=== PATIENT | female | born 1975 | race Hispanic/Latino ===

== ENCOUNTER 2019-11-12 04:32 | Inpatient (IN) | payer SELFPAY ==
[~2019-11-12] VITALS: Ht 147.3 cm; Wt 75.2 kg
[2019-11-12] MEDS ORDERED: ACETAMINOPHEN-CODEINE 300/30MG TAB ONE (05:23)
[2019-11-12] MEDS ORDERED: SODIUM CHLORIDE 0.9% 1000ML 1,000 ML IV ONE ×2 (05:23→14:12)
[2019-11-12 05:27] LABS: BILIRUBIN,URINE Negative (NEGATIVE); COLOR,URINE Yellow (YELLOW); GLUCOSE, URINE (UA) TRACE mg/dL (NEGATIVE); KETONES,URINE Negative (NEGATIVE); LEUKOCYTE ESTERASE ,URINE Large (NEGATIVE); NITRATE,URINE Negative (NEGATIVE); OCCULT BLOOD,URINE Moderate (NEGATIVE); PROTEIN,URINE Trace mg/dL (NEGATIVE)
[2019-11-12 05:30] LABS: APPEARANCE,URINE SLIGHTLY CLOUDY (CLEAR)
[2019-11-12 05:31] LABS: HCG,QUAL RESULT NEGATIVE (NEGATIVE)
[2019-11-12 05:45] LABS: BASOPHILS % (AUTO) 0.3 % (0.0-5.0); EOSINOPHILS % (AUTO) 1.8 % (0.0-8.0); HEMATOCRIT 41.9 % (36-48); LYMPHOCYTES % (AUTO) 20.3 % (21.0-51.0); MEAN CORPUSCULAR HEMOGLOBIN 27.8 pg (27.0-33.0); MEAN CORPUSCULAR HGB CONC 33.9 g/dL (32.0-36.0); MEAN CORPUSCULAR VOLUME 82.2 fL (79-99); MONOCYTES % (AUTO) 4.9 % (3.0-13.0); NEUTROPHILS % (AUTO) 72.4 % (40.0-77.0); PLATELET COUNT (AUTO) 264 K/uL (130-400); RED CELL DISTRIBUTION WIDTH 12.7 % (11.0-15.5); WHITE BLOOD COUNT (AUTO) 9.4 K/uL (4.8-10.8)
[2019-11-12 05:52] LABS: BACTERIA,URINE Rare /HPF (None Seen); SQUAMOUS EPITHELIAL CELL,UR Few /HPF (0-2)
[2019-11-12 05:59] LABS: CREATININE 0.7 mg/dL (0.5-1.5); POTASSIUM 4.5 mmol/L (3.5-5.1)
[2019-11-12 06:04] LABS: ALBUMIN 3.7 g/dL (3.5-5.0); BILIRUBIN,TOTAL 0.4 mg/dL (0.2-1.0); TOTAL PROTEIN, SERUM 8.1 g/dL (6.0-8.3)
[2019-11-12] MEDS ORDERED: CEFTRIAXONE SODIUM 1 GM ONE (06:18)
[2019-11-12] MEDS ORDERED: IOHEXOL-350 75 ML VIAL IV ONE (07:06)
[2019-11-12] MEDS: SODIUM CHLORIDE 0.9% 1000ML 1,000 ML IV SCH (13:12)
[2019-11-12] MEDS ORDERED: LACTULOSE 20 GM/30 ML UDCUP PO PRN (13:15)
[2019-11-12] MEDS ORDERED: ONDANSETRON HCL 4 MG/2 ML VIAL IV PRN (13:15)
[2019-11-12] MEDS ORDERED: ACETAMINOPHEN 325 MG TAB PO PRN (13:15)
[2019-11-12] MEDS: CEFTRIAXONE SODIUM 1 GM IV SCH (13:15)
[2019-11-12] MEDS: METRONIDAZOLE 500MG/100ML BAG 100 ML IV SCH ×2 (14:00→21:38)
[2019-11-12] MEDS ORDERED: ACETAMINOPHEN 325 MG TAB ONE (14:12)
[2019-11-12] MEDS: INSULIN HUMULIN R 100 UNIT/ML 3ML SQ SCH ×2 (16:30→20:39)
[2019-11-12] MEDS ORDERED: INSULIN HUMULIN R 100 UNIT/ML 3ML ONE (17:51)
[2019-11-12 18:00] VITALS: BP 141/77
--- NOTE | 2019-11-12 18:50 | NUR ---
MED INFO PATIENT ARRIVED ON FLOOR AT 1800 HOURS. SEE ED NOTES FOR MED ADMINISTRATION PRIOR TO ARRIVAL.
[2019-11-12 19:40] VITALS: BP 116/75
[2019-11-12] MEDS ORDERED: FLU VACC QS2019-20 36MOS UP/PF 60 MCG/0.5 ML ML IM ONE ×2 (20:15→21:30)
[2019-11-12] MEDS: FAMOTIDINE 20MG TAB 20 MG TAB PO SCH (20:40)
[2019-11-12 23:02] VITALS: BP 132/70
[2019-11-13 03:37] VITALS: BP 114/65
[2019-11-13 04:09] LABS: BASOPHILS % (AUTO) 0.4 % (0.0-5.0); EOSINOPHILS % (AUTO) 2.8 % (0.0-8.0); HEMATOCRIT 37.3 % (36-48); LYMPHOCYTES % (AUTO) 23.9 % (21.0-51.0); MEAN CORPUSCULAR HEMOGLOBIN 27.9 pg (27.0-33.0); MEAN CORPUSCULAR HGB CONC 33.5 g/dL (32.0-36.0); MEAN CORPUSCULAR VOLUME 83.3 fL (79-99); MONOCYTES % (AUTO) 7.1 % (3.0-13.0); NEUTROPHILS % (AUTO) 65.4 % (40.0-77.0); PLATELET COUNT (AUTO) 236 K/uL (130-400); RED BLOOD CELL COUNT(AUTO) 4.48 MIL/uL (4.00-5.50)
[2019-11-13 04:16] LABS: HEMOGLOBIN A1C 9.4 % (4.0-6.0)
[2019-11-13 04:24] LABS: BILIRUBIN,TOTAL 0.5 mg/dL (0.2-1.0); CREATININE 0.5 mg/dL (0.5-1.5); POTASSIUM 3.8 mmol/L (3.5-5.1); TOTAL PROTEIN, SERUM 6.7 g/dL (6.0-8.3)
[2019-11-13] MEDS: INSULIN HUMULIN R 100 UNIT/ML 3ML SQ SCH ×5 (06:54→21:00)
[2019-11-13] MEDS: METRONIDAZOLE 500MG/100ML BAG 100 ML IV SCH ×3 (06:57→21:27)
[2019-11-13] MEDS: SODIUM CHLORIDE 0.9% 1000ML 1,000 ML IV SCH (06:58)
[2019-11-13 08:00] VITALS: BP 123/74
[2019-11-13] MEDS: ENOXAPARIN SODIUM 30 MG/0.3 ML SQ SCH (08:12)
[2019-11-13] MEDS: FAMOTIDINE 20MG TAB 20 MG TAB PO SCH ×2 (08:12→20:57)
[2019-11-13 12:00] VITALS: BP 123/69
[2019-11-13] MEDS: CEFTRIAXONE SODIUM 1 GM IV SCH (13:19)
--- NOTE | 2019-11-13 14:34 | NUR ---
Initial Assessment Patient lives with her 21 and 23 yr old daughters. No home services or DME. No PCP. Pharmacy is [facility] in [place]. Patient is independent but does not drive. Patient has no insurance or benefits. Not a [place] citizen or legal resident. [facility] assisting patient. Patient was provided with Good Rx Medication card and community resources for post discharge follow up with MD. Addendum: 11/13/19 at 1437 by ROCÍO GUNN SS Amended: Links added.
[2019-11-13 16:00] VITALS: BP 140/79
[2019-11-13] MEDS ORDERED: DIATR MEGLU/DIATRIZOATE SODIUM 30 ML BOTTLE ONE (17:22)
[2019-11-13] MEDS ORDERED: DEXTROSE 50%-WATER 50 ML DISP.SYRIN IV PRN (19:15)
[2019-11-13] MEDS ORDERED: GLUCAGON 1MG KIT 1 MG ML IM PRN (19:15)
[2019-11-13 20:02] VITALS: BP 161/94
[2019-11-13] MEDS: ACETAMINOPHEN 325 MG TAB PO PRN (21:01)
[2019-11-13 23:46] VITALS: BP 105/58
[2019-11-14 03:37] VITALS: BP 123/59
[2019-11-14 05:29] LABS: BASOPHILS % (AUTO) 0.4 % (0.0-5.0); EOSINOPHILS % (AUTO) 3.6 % (0.0-8.0); HEMATOCRIT 37.9 % (36-48); LYMPHOCYTES % (AUTO) 28.9 % (21.0-51.0); MEAN CORPUSCULAR HEMOGLOBIN 27.5 pg (27.0-33.0); MEAN CORPUSCULAR HGB CONC 33.2 g/dL (32.0-36.0); MEAN CORPUSCULAR VOLUME 82.8 fL (79-99); MONOCYTES % (AUTO) 8.4 % (3.0-13.0); NEUTROPHILS % (AUTO) 58.4 % (40.0-77.0); PLATELET COUNT (AUTO) 254 K/uL (130-400); RED BLOOD CELL COUNT(AUTO) 4.58 MIL/uL (4.00-5.50); WHITE BLOOD COUNT (AUTO) 6.9 K/uL (4.8-10.8)
[2019-11-14] MEDS: INSULIN HUMULIN R 100 UNIT/ML 3ML SQ SCH ×7 (05:42→20:29)
[2019-11-14] MEDS: METRONIDAZOLE 500MG/100ML BAG 100 ML IV SCH ×3 (05:50→21:03)
[2019-11-14 05:58] LABS: ALBUMIN 3.1 g/dL (3.5-5.0); BILIRUBIN,TOTAL 0.4 mg/dL (0.2-1.0); CREATININE 0.7 mg/dL (0.5-1.5); POTASSIUM 3.6 mmol/L (3.5-5.1); TOTAL PROTEIN, SERUM 6.8 g/dL (6.0-8.3)
[2019-11-14] MEDS: INSULIN HUMULIN 70/30 100 UNIT/ML 3ML SQ SCH (07:02)
[2019-11-14 07:15] VITALS: BP 133/74
[2019-11-14] MEDS: FAMOTIDINE 20MG TAB 20 MG TAB PO SCH ×2 (10:25→21:03)
[2019-11-14] MEDS: ACETAMINOPHEN 325 MG TAB PO PRN ×2 (10:26→21:14)
[2019-11-14] MEDS: ENOXAPARIN SODIUM 30 MG/0.3 ML SQ SCH (10:27)
[2019-11-14 10:33] VITALS: BP 125/87
[2019-11-14] MEDS: CEFTRIAXONE SODIUM 1 GM IV SCH (14:14)
[2019-11-14 15:55] VITALS: BP 122/62
[2019-11-14] MEDS ORDERED: INSULIN HUMULIN 70/30 100 UNIT/ML 3ML SQ SCH (16:30)
[2019-11-14 19:30] VITALS: BP 133/74
[2019-11-14 23:43] VITALS: BP 105/59
[2019-11-15 04:40] VITALS: BP 110/66
[2019-11-15 05:12] LABS: BASOPHILS % (AUTO) 0.3 % (0.0-5.0); EOSINOPHILS % (AUTO) 2.7 % (0.0-8.0); HEMATOCRIT 38.3 % (36-48); LYMPHOCYTES % (AUTO) 24.7 % (21.0-51.0); MEAN CORPUSCULAR HEMOGLOBIN 27.5 pg (27.0-33.0); MEAN CORPUSCULAR HGB CONC 33.4 g/dL (32.0-36.0); MEAN CORPUSCULAR VOLUME 82.2 fL (79-99); MONOCYTES % (AUTO) 7.4 % (3.0-13.0); NEUTROPHILS % (AUTO) 64.8 % (40.0-77.0); PLATELET COUNT (AUTO) 254 K/uL (130-400); RED BLOOD CELL COUNT(AUTO) 4.66 MIL/uL (4.00-5.50); WHITE BLOOD COUNT (AUTO) 7.3 K/uL (4.8-10.8)
[2019-11-15 05:49] LABS: ALBUMIN 3.2 g/dL (3.5-5.0); BILIRUBIN,TOTAL 0.5 mg/dL (0.2-1.0); CREATININE 0.6 mg/dL (0.5-1.5); POTASSIUM 3.3 mmol/L (3.5-5.1); TOTAL PROTEIN, SERUM 6.8 g/dL (6.0-8.3)
[2019-11-15] MEDS: METRONIDAZOLE 500MG/100ML BAG 100 ML IV SCH ×2 (06:46→13:29)
[2019-11-15] MEDS: INSULIN HUMULIN R 100 UNIT/ML 3ML SQ SCH ×2 (07:30→11:30)
[2019-11-15 08:00] VITALS: BP 121/73
[2019-11-15] MEDS: FAMOTIDINE 20MG TAB 20 MG TAB PO SCH (08:35)
[2019-11-15] MEDS: ENOXAPARIN SODIUM 30 MG/0.3 ML SQ SCH (08:36)
[2019-11-15] MEDS: INSULIN HUMULIN 70/30 100 UNIT/ML 3ML SQ SCH (08:40)
[2019-11-15 12:00] VITALS: BP 123/85
[2019-11-15] MEDS: CEFTRIAXONE SODIUM 1 GM IV SCH (13:29)
[2019-11-15] MEDS ORDERED: CEPH500B PO (14:04)
[2019-11-15] MEDS ORDERED: METR-172 PO (14:04)
== END 2019-11-15 15:35 | disposition home or self-care (01) | DRG 372 ==
LOC: EDH 04:32 → EDHIP 04:33 → 3CH 17:13
PROVIDERS: ADMIT Family Medicine; ATTEND Family Medicine
DX: A04.9 Bacterial intestinal infection, unspecified (principal); N39.0 Urinary tract infection, site not specified; N85.2 Hypertrophy of uterus; E11.9 Type 2 diabetes mellitus without complications; N92.6 Irregular menstruation, unspecified; K57.30 Diverticulosis of large intestine without perforation or abscess without bleeding; K76.0 Fatty (change of) liver, not elsewhere classified; Z23 Encounter for immunization
CPT/HCPCS: 36415; 74176; 74177; 76856; 80053; 81001; 81025; 82948; 83036; 85025; 87088; 87486; 87797; G0008; G0378; J0696; J1650; J1815; J3490; J7030; Q2035; Q9963; Q9967